=== PATIENT | female | born 1955 | race Caucasian/White ===

== ENCOUNTER → 2018-01-11 | Outpatient (CLI) | payer MEDICAID ==
[~2018-01-11] VITALS: Ht 167.6 cm; Wt 90.7 kg
[2018-01-11] VITALS (8 sets, daily range): BP systolic 134–165; BP diastolic 54–80
[~2018-01-11] MED LIST: CALCIUM 500 +1 EAC5 PO; KEFLEX500 M1 PO; KEPPRA750 MG PO; KLOR-CON 10 ER10 MEQ PO; LAMICTAL100 MG PO; LEXAPRO 10 MG T10 M2 PO; LISINOPRIL10 MG PO; PROAIR HFA8.5 GM INH; SYNTHROID137 MC1 PO; ZANTAC 150MG T150 MG PO; ZOFRAN4 MG PO
[2018-01-11 08:52] LABS: HEMATOCRIT 39.5 % (37.0-47.0); HEMOGLOBIN 12.8 gm/dL (12.0-15.0); MCH 29.9 pg (26.0-34.0); MCHC 32.3 g/dL (28.0-37.0); MCV 92.3 fL (80.0-100.0); MPV 8.7 fl. (7.2-11.1); RBC 4.28 mil/uL (4.20-5.00); WBC 7.4 thou/uL (4.0-11.0)
[2018-01-11 09:05] LABS: APTT 25.4 Seconds (25.0-31.3); CALCIUM 9.4 mg/dL (8.5-10.1); CREATININE 1.1 mg/dL (0.6-1.3); INR 1.1; POTASSIUM 4.2 mmol/L (3.5-5.1); PROTIME 10.7 Seconds (9.20-11.50)
[2018-01-11 09:09] LABS: ALBUMIN 3.9 g/dL (3.4-5.0); TOTAL BILIRUBIN 0.5 mg/dL (<0.1-1.0); TOTAL PROTEIN 7.9 g/dL (6.4-8.2)
--- NOTE | 2018-01-11 17:56 | EKG ---
[place] [address] ELECTROCARDIOGRAM REPORT Name: SANTIAGO TEJADA Room: [facility]#: [id number] Admission: 01/11/18 Attend Phys: Gianfranco Glass MD Discharge: Date of : 51 Report #: [id number] THIS REPORT FOR: //name// [facility] Test Date: 2018-01-11 Test Time: 13:09:42 Pat Name: SANTIAGO TEJADA Department: Room: Gender: F Manager Of Hospital: : 1955 Requested By: Gianfranco Glass Order Number: [id number] Reading MD: Gianfranco Glass Measurements Intervals [place] Rate: 61 P: SC: 208 QRS: 37 QRSD: 111 T: 81 QT: 456 QTc: 460 Interpretive Statements Atrial-paced rhythm Low voltage, precordial leads No previous ECG available for comparison Electronically Signed On 01-11-2018 17:55:46 CDT by Gianfranco Glass [email or web address] <ELECTRONICALLY SIGNED> By: Gianfranco Glass MD, [facility] 01/11/18 1755 1309 1309 Gianfranco Glass MD, FACC /EPI
--- NOTE | 2018-01-21 16:57 | CARD ---
[address] [address] CARDIAC CATH REPORT Name: SANTIAGO TEJADA Room: [facility]#: [id number] Admission: 01/11/18 Attend Phys: Gianfranco Glass MD Discharge: Date of : 51 Report #: [id number] THIS REPORT FOR: //name// APPROVED REPORT Study performed: 01/11/2018 09:45:33 Patient Status: Out-Patient Room #: Event Personnel: Gianfranco Glass Template Cutter, Ting Marx RN Soda Jerker, Marlen Mcfarlane Monitor, Cecile Melendez RTR Scrub, Radha Coppola RTR Scrub Exam: Insertion of Dual Chamber Permanent Pacemaker Indications: severe persistent symptomatic bradycardia The patient is a 62 year-old female with a history of severe persistent symptomatic bradycardia. Conscious Sedation Start time: 10:20 End Time: 11:00 Fentanyl 50 mcg Versed 2 mg Implanted Devices: Biotronik Eluna 8 DRT ProMRI, model #139851, serial #[id number] Biotronik Soliay S 45, model #965062, serial number [id number] right atrial lead Biotronik Solia S 53, model #355271, serial #[id number] right ventricular lead Procedure The patient underwent informed consent. We discussed the details of the procedure including the risks, which include, but not limited to bleeding, infection, vascular damage, cardiac perforation, and pneumothorax. The patient underwent conscious sedation, with no related complications. After informed consent was obtained the patient was brought to the interventional radiology lab. The area of the left chest was prepped and draped in sterile fashion. Local anesthesia was achieved with 2% lidocaine. After an initial incision was made a device pocket was formed over the left pectoralis muscle using electrocautery and blunt dissection. A micropuncture kit was then utilized to access the left subclavian vein under fluoroscopic guidance with peripheral injection of IV contrast. Ultimately a CT J guidewire was advanced to the level of the right atrium under fluoroscopic guidance. The micropuncture kit was utilized a second time to access the left [place] [address] CARDIAC CATH REPORT Name: SANTIAGO TEJADA Room: [facility]#: [id number] Admission: 01/11/18 Attend Phys: Gianfranco Glass MD Discharge: Date of : 51 Report #: [id number] J guidewire was advanced to the area of the right atrium under fluoroscopic guidance. A 7 [place] tear-away introducer was advanced over one of the guidewires. The guidewire and dilator were removed as the right ventricular lead was advanced to a secure position with the right ventricular apex. Tear-away introducer was removed. The lead was repositioned to the right ventricular septum. He diaphragmatic stimulation with maximal output pacing. Adequate slack was assured. A 7 [place] tear-away introducer was advanced over the remaining guidewire. Dilator and guidewire removed and the right atrial lead advanced a secure position right atrial appendage. Maximum output pacing. Adequate slack was assured. The atrial and ventricular leads were then secured within the device pocket using the dyspnea, and interrupted stitches of 2-0 silk suture. The pocket was flushed with antibiotic solution. Next the atrial and ventricular leads were attached to a dual-chamber pacing generator. Redundant lead and generator were then placed within the device pocket. The deep tissues were closed with interrupted stitches of 2-0 Vicryl. The skin incision was then closed with a single subcuticular stitch of 4-0 Vicryl. Several Steri-Strips were placed across the incision. A sterile Telfa dressing was covered with a Tegaderm. The patient tolerated the procedure well without complication. Electrode Parameters P Wave: 1.90 mV R Wave: 7.30 mV Atrial Threshold: 1.4 V at 0.40 ms Ventricular Threshold: 0.80 V at 0.40 ms Atrial Resistance: 526 ohms Ventricular Resistance: 663 ohms Findings Mode DDD/CLS Lower rate 60 bpm Upper tracking rate 130 bpm Mode switch rate 160 bpm Conclusion 1. Severe symptomatic persistent bradycardia. 2. Successful implantation of a dual-chamber pacemaker with atrial and ventricular lead placement[place] [address] CARDIAC CATH REPORT Name: SANTIAGO TEJADA Room: [facility] MARQUES Garces#: [id number] Admission: 01/11/18 Attend Phys: Gianfranco Glass MD Discharge: Date of : 51 Report #: [id number] 1. Follow-up site check in one week. 2. Follow-up device check in the office in one month. <ELECTRONICALLY SIGNED> By: Gianfranco Glass MD, FACC 01/21/181656 56 56[facility], [facility] /INF
== END | disposition home or self-care (01) ==
LOC: M.CL 07:37
PROVIDERS: Internal Medicine Cardiovascular Disease
DX: I49.5 Sick sinus syndrome (principal); E11.9 Type 2 diabetes mellitus without complications; K21.9 Gastro-esophageal reflux disease without esophagitis; G43.909 Migraine, unspecified, not intractable, without status migrainosus; G47.33 Obstructive sleep apnea (adult) (pediatric); J45.909 Unspecified asthma, uncomplicated; M19.90 Unspecified osteoarthritis, unspecified site; F41.9 Anxiety disorder, unspecified; F32.9 Major depressive disorder, single episode, unspecified; E66.09 Other obesity due to excess calories; Z90.710 Acquired absence of both cervix and uterus; Z98.49 Cataract extraction status, unspecified eye; Z98.890 Other specified postprocedural states; Z96.649 Presence of unspecified artificial hip joint; Z79.899 Other long term (current) drug therapy; Z79.01 Long term (current) use of anticoagulants

== ENCOUNTER → 2018-11-08 | Outpatient (CLI) | payer MEDICAID ==
--- NOTE | 2018-11-08 15:16 | 2DMMODE ---
[place] [address] 2 D/M-MODE ECHOCARDIOGRAM Name: SANTIAGO TEJADA Room: [facility]#: [id number] Admission: 11/08/18 Attend Phys: Sary Lerma Discharge: Date of : 51 Date of Service: 11/08/18 1515 Report #: [id number] THIS REPORT FOR: //name// APPROVED REPORT Study performed: 11/08/2018 12:58:00 EXAM: Comprehensive 2D, Doppler, and color-flow Echocardiogram Patient Location: Out-Patient BSA: 2.01 HR: 82 bpm BP: 130/90 mmHg Other Information Study Quality: Good Indications Dizziness and Vertigo Hypertension/HDD 2D Dimensions IVSd: 10.22 (7-11mm) LVOT Diam: 20.12 (18-24mm) LVDd: 37.47 mm PWd: 8.86 (7-11mm) Ascending Ao: 34.01 (22-36mm) LVDs: 23.38 (25-40mm) Aortic Root: 26.00 mm Volumes Left Atrial Volume (Systole) LA ESV Index: 8.20 mL/m2 Aortic Valve AoV Peak Saul.: 1.39 m/s AO Peak Gr.: 7.70 mmHg LVOT Max P.47 mmHg AO Mean Gr.: 4.60 mmHg LVOT Mean P.72 mmHg LVOT Max V: 0.93 m/s AO V2 VTI: 26.62 cm LVOT Mean V: 0.60 m/s PRITI (VTI): 2.30 cm2 LVOT V1 VTI: 19.29 cm Mitral Valve E/A Ratio: 0.62 MV Decel. Time: 290.07 ms MV E Max Saul.: 0.46 m/s MV PHT: 84.12 [place] [address] 2 D/M-MODE ECHOCARDIOGRAM Name: SANTIAGO TEJADA Room: [facility]#: [id number] Admission: 11/08/18 Attend Phys: Sary Lerma Discharge: Date of : 51 Date of Service: 11/08/18 1515 Report #: [id number] MVA (PHT): 2.62 cm2 TDI E/Lateral E': 5.75 E/Medial E': 5.75 Medial E' Saul.: 0.08 m/s Lateral E' Saul.: 0.08 m/s Pulmonary Valve PV Peak Saul.: 1.03 m/s PV Peak Gr.: 4.27 mmHg Tricuspid Valve RAP Estimate: 5.00 mmHg TR Peak Gr.: 23.74 mmHg RVSP: 28.74 mmHg PA Pressure: 28.74 mmHg Left Ventricle The left ventricle is normal size. There is normal LV segmental wall motion. There is normal left ventricular wall thickness. Left ventricular systolic function is normal. LVEF is 55-60%. Grade I - abnormal relaxation pattern. Right Ventricle The right ventricle is normal size. The right ventricular systolic function is normal. Pacemaker lead is present in the right ventricle. Atria The left atrium size is normal. Pacemaker lead is present in the right atrium. Aortic Valve The aortic valve is normal in structure. Trace aortic regurgitation. There is no aortic valvular stenosis. Mitral Valve The mitral valve is normal in structure. There is no mitral valve regurgitation noted. No evidence of mitral valve stenosis. Tricuspid Valve The tricuspid valve is normal in structure. Mild tricuspid regurgitation. No pulmonary hypertension. Pulmonic Valve The pulmonary valve is normal in structure. There is no pulmonic valvular regurgitation. [place] [address] 2 D/M-MODE ECHOCARDIOGRAM Name: SANTIAGO TEJADA Room: [facility]#: [id number] Admission: 11/08/18 Attend Phys: Sary Lerma Discharge: Date of : 51 Date of Service: 11/08/18 1515 Report #: [id number] The aortic root is normal in size. IVC is normal in size and collapses >50% with inspiration. Pericardium There is no pericardial effusion. <Conclusion> The left ventricle is normal size. There is normal left ventricular wall thickness. Left ventricular systolic function is normal. LVEF is 55-60%. Grade I - abnormal relaxation pattern. Pacemaker lead is present in the right ventricle. Trace aortic regurgitation. Mild tricuspid regurgitation. No pulmonary hypertension. IVC is normal in size and collapses >50% with inspiration. <ELECTRONICALLY SIGNED> By: Gianfranco Glass MD, FACC 11/08/18 1515 1515 1515 Gianfranco Glass MD, FACC /INF
== END ==
LOC: M.CRD 12:17
DX: I07.1 Rheumatic tricuspid insufficiency (principal); I10 Essential (primary) hypertension; Z88.8 Allergy status to other drugs, medicaments and biological substances; Z88.5 Allergy status to narcotic agent; Z91.040 Latex allergy status; Z95.0 Presence of cardiac pacemaker